=== PATIENT | female | born 1960 | race Caucasian/White ===

== ENCOUNTER 2023-01-12 09:18 | Outpatient (CLI) | payer BC ==
[~2023-01-12 09:18] MED LIST: LANS30CA53 PO; METH2.5T PO; ONDA-8 TL; RESEYE OP; TOPI-255 PO
== END 2023-01-12 19:51 | disposition short-term general hospital (02) ==
LOC: SNM 09:18
PROVIDERS: ATTEND Internal Medicine Gastroenterology
DX: K21.9 Gastro-esophageal reflux disease without esophagitis (principal)
CPT/HCPCS: 78264; A9541

== ENCOUNTER 2023-07-13 06:44 | Day surgery (SDC) | payer BC ==
[~2023-07-13] VITALS: Ht 160 cm; Wt 78.5 kg
[2023-07-13] MEDS ORDERED: NS 1000 ML IV.SOLN IV ONE (10:00)
[2023-07-13] MEDS ORDERED: PROPOFOL 200MG/ 20ML VIAL (DIPRIVAN) IV ONE (10:00)
[2023-07-13 10:35] VITALS: O2SAT 98
[2023-07-13 13:30] VITALS: BP_SYST 119; PULSE 81; RESP 16
== END 2023-07-13 11:48 | disposition home or self-care (01) ==
LOC: SDS 06:44 → SMU 06:45 → SDS 11:48
PROVIDERS: ATTEND Internal Medicine Gastroenterology
DX: R19.4 Change in bowel habit (principal); D12.2 Benign neoplasm of ascending colon; R14.0 Abdominal distension (gaseous); K57.30 Diverticulosis of large intestine without perforation or abscess without bleeding; K52.9 Noninfective gastroenteritis and colitis, unspecified; K21.9 Gastro-esophageal reflux disease without esophagitis; I10 Essential (primary) hypertension; G43.909 Migraine, unspecified, not intractable, without status migrainosus; Z79.899 Other long term (current) drug therapy
CPT/HCPCS: 45380; 45385; 71045; 93005; 88305; J2704; J7030